=== PATIENT | female | born 1975 | race Hispanic/Latino ===

== ENCOUNTER 2019-11-12 12:36 | Emergency (ER) | payer OTHER ==
--- NOTE | 2019-11-12 13:36 | RAD ---
EXAM: 2 views of the left knee HISTORY: Left knee pain after falling playing basketball COMPARISON: None FINDINGS: No knee effusion is seen. There is no evidence of acute fracture or dislocation. Mild trico mpartmental joint space narrowing and osteophyte formation is seen, greatest in medial femorotibial compartment. IMPRESSION: Mild left knee osteoarthritis without acute osseous abnormality.
== END 2019-11-12 13:59 | disposition home or self-care (01) ==
LOC: ERS 12:36
DX: S83.92XA Sprain of unspecified site of left knee, initial encounter (principal); I10 Essential (primary) hypertension; M17.12 Unilateral primary osteoarthritis, left knee; W01.0XXA Fall on same level from slipping, tripping and stumbling without subsequent striking against object, initial encounter; Y93.67 Activity, basketball